=== PATIENT | male | born 1970 | race Caucasian/White ===

== ENCOUNTER 2017-02-05 14:52 | Emergency (ER) | payer MEDICARE, OTHER ==
[~2017-02-05] VITALS: Ht 180.3 cm; Wt 84.0 kg
[~2017-02-05 14:52] MED LIST: ALPR-624 PO; CARI3CAP PO; DIL100C PO; GABA-532 PO; KEP500T PO; LURA80TA3 PO; NICO-631 TD; OXCA600T PO; PANT-47 PO; PRAZ1CAP5 PO; RIFA200T2 PO; TRAZ150T78 PO; VENL-190 PO
[2017-02-05 15:24] LABS: BASOPHILS # (AUTO) 0.1 X10'3 (0-0.2); BASOPHILS % (AUTO) 0.8 % (0-1); EOSINOPHILS # (AUTO) 0.2 X10'3 (0-0.9); HEMATOCRIT 38.6 % (42.0-52.0); HEMOGLOBIN 12.7 g/dl (14.0-17.9); LYMPHOCYTES # (AUTO) 2.1 X10'3 (1.1-4.8); LYMPHOCYTES % (AUTO) 22.3 % (21-51); MEAN CORPUSCULAR HEMOGLOBIN 31.1 PG (27.0-31.0); MEAN CORPUSCULAR HGB CONC 32.8 % (33.0-36.5); MEAN CORPUSCULAR VOLUME 94.6 FL (78-98); MEAN PLATELET VOLUME 6.2 FL (7.4-10.4); MONOCYTES # (AUTO) 0.9 X10'3 (0-0.9); MONOCYTES % (AUTO) 9.9 % (2-12); NEUTROPHILS # (AUTO) 6.2 X10'3 (1.8-7.7); PLATELET COUNT 268 X10'3 (140-440); RED BLOOD COUNT 4.08 X10'6 (4.70-6.10); RED CELL DISTRIBUTION WIDTH 19.6 % (11.5-14.5); WHITE BLOOD COUNT 9.6 X10'3 (4.5-11.0)
[2017-02-05 15:29] LABS: CLARITY,URINE Clear (Clear); COLOR,URINE Yellow (Yellow); GLUCOSE, URINE Negative (Neg); KETONES,URINE Negative (Neg); LEUKOCYTE ESTERASE ,URINE Negative (Neg); NITRITES, URINE Negative (Neg); OCCULT BLOOD,URINE Negative (Neg); PROTEIN,URINE Negative (Neg)
[2017-02-05 15:30] LABS: UA COLLECTION TYPE CLN CATCH MIDSTREAM
[2017-02-05 15:33] LABS: INR 1.5 INR
[2017-02-05 15:39] LABS: ALANINE AMINOTRANSFERASE 16 U/L (12-78); ALBUMIN 2.6 G/DL (3.4-5.0); ALBUMIN/GLOBULIN RATIO 0.5 (1.1-1.5); ALKALINE PHOSPHATASE 235 IU/L (46-116); AMYLASE 13 U/L (25-115); ANION GAP 6 (8-16); ASPARTATE AMINO TRANSFERASE 46 U/L (10-37); BILIRUBIN,TOTAL 1.4 MG/DL (0.1-1.0); BLOOD UREA NITROGEN 1 MG/DL (7-18); BUN/CREATININE RATIO 1.6 (5.4-32.0); CALCIUM 8.2 MG/DL (8.5-10.1); CHLORIDE 99 MMOL/L (99-107); CREATININE 0.61 MG/DL (0.60-1.10); GLUCOSE 133 MG/DL (70-104); LIPASE 50 U/L (73-393); POTASSIUM 3.8 MMOL/L (3.5-5.1); SODIUM 135 MMOL/L (135-145); TOTAL CARBON DIOXIDE 29.7 MMOL/L (24-32); TOTAL PROTEIN 8.1 G/DL (6.4-8.2); eGFR > 90 ML/MIN
[2017-02-05 20:46] VITALS: BP 124/81
== END 2017-02-05 20:49 | disposition home or self-care (01) ==
LOC: ER 14:52
DX: R18.8 Other ascites (principal); F10.10 Alcohol abuse, uncomplicated; Z79.899 Other long term (current) drug therapy
CPT/HCPCS: 36415; 49082; 80053; 81003; 82150; 83690; 85025; 85610; 99285

== ENCOUNTER 2017-02-16 07:03 | Inpatient (IN) | payer MEDICARE, OTHER ==
[~2017-02-16] VITALS: Ht 180.3 cm; Wt 89.3 kg
[2017-02-16 07:39] LABS: BASOPHILS # (AUTO) 0.2 X10'3 (0-0.2); BASOPHILS % (AUTO) 1.6 % (0-1); EOSINOPHILS # (AUTO) 0.2 X10'3 (0-0.9); EOSINOPHILS % (AUTO) 1.8 % (0-6); HEMATOCRIT 38.8 % (42.0-52.0); HEMOGLOBIN 12.8 g/dl (14.0-17.9); LYMPHOCYTES # (AUTO) 2.9 X10'3 (1.1-4.8); MEAN CORPUSCULAR HEMOGLOBIN 30.4 PG (27.0-31.0); MEAN CORPUSCULAR VOLUME 92.3 FL (78-98); MEAN PLATELET VOLUME 6.2 FL (7.4-10.4); MONOCYTES # (AUTO) 1.5 X10'3 (0-0.9); MONOCYTES % (AUTO) 14.4 % (2-12); NEUTROPHILS # (AUTO) 5.7 X10'3 (1.8-7.7); NEUTROPHILS % (AUTO) 54.2 % (42-75); PLATELET COUNT 254 X10'3 (140-440); RED CELL DISTRIBUTION WIDTH 18.7 % (11.5-14.5); WHITE BLOOD COUNT 10.4 X10'3 (4.5-11.0)
[2017-02-16 07:49] LABS: INR 1.4 INR; PROTHROMBIN TIME 14.7 SECONDS (9.0-12.0)
[2017-02-16 07:54] LABS: ALANINE AMINOTRANSFERASE 18 U/L (12-78); ALBUMIN 2.4 G/DL (3.4-5.0); ALBUMIN/GLOBULIN RATIO 0.4 (1.1-1.5); ALKALINE PHOSPHATASE 237 IU/L (46-116); ANION GAP 7 (8-16); ASPARTATE AMINO TRANSFERASE 42 U/L (10-37); BILIRUBIN,TOTAL 1.6 MG/DL (0.1-1.0); BLOOD UREA NITROGEN 2 MG/DL (7-18); BUN/CREATININE RATIO 2.8 (5.4-32.0); CALCIUM 8.2 MG/DL (8.5-10.1); CHLORIDE 99 MMOL/L (99-107); CREATININE 0.71 MG/DL (0.60-1.10); GLUCOSE 107 MG/DL (70-104); LIPASE 51 U/L (73-393); POTASSIUM 3.3 MMOL/L (3.5-5.1); SODIUM 135 MMOL/L (135-145); TOTAL PROTEIN 8.1 G/DL (6.4-8.2); eGFR > 90 ML/MIN
[2017-02-16 08:11] LABS: CLARITY,URINE CLEAR (Clear); COLOR,URINE YELLOW (Yellow); GLUCOSE, URINE NEGATIVE (Neg); KETONES,URINE TRACE mg/dl (Neg); LEUKOCYTE ESTERASE ,URINE NEGATIVE (Neg); NITRITES, URINE NEGATIVE (Neg); OCCULT BLOOD,URINE NEGATIVE (Neg); PH,URINE 6.5 (4.8-8.0); PROTEIN,URINE TRACE mg/dl (Neg)
[2017-02-16 08:36] LABS: UA COLLECTION TYPE CLN CATCH MIDSTREAM
[2017-02-16] MEDS ORDERED: pantoprazole 40 MG vial IV ONE (09:05)
[2017-02-16] MEDS ORDERED: ondansetron/PF 4mg/2ml inj IV ONE (09:25)
[2017-02-16] MEDS ORDERED: pantoprazole 40MG/NS 100ML BAG 100 ML IV ONE (09:40)
[2017-02-16 09:41] LABS: MAGNESIUM 1.7 MG/DL (1.5-2.4)
[2017-02-16 09:59] LABS: MUCUS STRANDS MANY /LPF (Neg); SQUAMOUS EPITHELIAL CELL,UR MODERATE /LPF (FEW)
[2017-02-16 10:05] LABS: BACTERIA,URINE FEW /HPF (Neg); RBC,URINE 0-2 /HPF (0-2); WBC,URINE 0-4 /HPF (0-4)
[2017-02-16] MEDS ORDERED: CARI3CAP PO (10:22)
[2017-02-16] MEDS ORDERED: pantoprazole 40MG/NS 100ML BAG 100 ML IV SCH (11:00)
[2017-02-16 11:46] LABS: OCCULT BLOOD STOOL POSITIVE (Neg)
[2017-02-16] MEDS ORDERED: mag hydrox/Alum hydrox/simeth 30ml oral suspension PO PRN (12:15)
[2017-02-16] MEDS ORDERED: acetaminophen 325mg tablet PO PRN (12:15)
[2017-02-16] MEDS ORDERED: magnesium hydroxide 30ml (MOM) UD suspension PO PRN (12:15)
[2017-02-16] MEDS ORDERED: albumin (human) 25% 100 ML IV solution IV ONE ×3 (12:20→14:30)
[2017-02-16 12:23] LABS: URINE AMPHETAMINE SCREEN NEGATIVE (Neg); URINE BARBITUATE SCREEN NEGATIVE (Neg); URINE BENZODIAZEPINES SCREEN POSITIVE (Neg); URINE CANNABINOID SCREEN POSITIVE (Neg); URINE COCAINE SCREEN NEGATIVE (Neg); URINE METHADONE SCREEN NEGATIVE (Neg); URINE OPIATE SCREEN NEGATIVE (Neg); URINE PHENCYCLIDINE SCREEN NEGATIVE (Neg)
[2017-02-16] MEDS ORDERED: LIDOcaine 1%/PF (10mg/ml) 5ml vial ONE (12:58)
[2017-02-16] MEDS: ondansetron/PF 4mg/2ml inj IV PRN (13:00)
[2017-02-16] MEDS: normal saline 1000ml 1,000 ML IV SCH ×2 (13:00→22:13)
[2017-02-16 13:13] VITALS: BP 120/81
[2017-02-16 13:34] VITALS: BP 98/75
[2017-02-16] MEDS ORDERED: ALPRAZolam 0.5mg tablet PO PRN (17:00)
[2017-02-16 17:20] VITALS: BP 100/72
[2017-02-16 20:00] VITALS: BP 104/76
[2017-02-16] MEDS: phenytoin sod ER 100mg capsule PO SCH (20:44)
[2017-02-16] MEDS: prazosin 1mg capsule PO SCH (20:45)
[2017-02-16] MEDS: traZODone 150mg tablet PO SCH (20:45)
[2017-02-16] MEDS: levetiracetam 250mg tablet PO SCH (20:45)
[2017-02-16] MEDS: lactulose 20gm/30ml cup PO SCH (20:45)
[2017-02-16] MEDS: pantoprazole 40 MG vial IV SCH (20:46)
[2017-02-16] MEDS: gabapentin 300mg capsule PO SCH (20:46)
[2017-02-16] MEDS: oxcarbazepine 150mg tablet PO SCH (20:51)
[2017-02-16] MEDS ORDERED: lurasidone 20mg tablet PO ONE (21:00)
[2017-02-16] MEDS ORDERED: lurasidone 60mg tablet PO ONE (21:00)
[2017-02-17] VITALS (10 sets, daily range): BP systolic 95–113; BP diastolic 53–77
[2017-02-17] MEDS: normal saline 1000ml 1,000 ML IV SCH ×2 (05:43→22:22)
[2017-02-17 06:05] LABS: BASOPHILS % (AUTO) 0.5 % (0-1); EOSINOPHILS # (AUTO) 0.1 X10'3 (0-0.9); EOSINOPHILS % (AUTO) 1.1 % (0-6); HEMATOCRIT 33.8 % (42.0-52.0); HEMOGLOBIN 11.1 g/dl (14.0-17.9); LYMPHOCYTES # (AUTO) 1.4 X10'3 (1.1-4.8); LYMPHOCYTES % (AUTO) 23.5 % (21-51); MEAN CORPUSCULAR HEMOGLOBIN 30.1 PG (27.0-31.0); MEAN CORPUSCULAR HGB CONC 32.9 % (33.0-36.5); MEAN CORPUSCULAR VOLUME 91.4 FL (78-98); MEAN PLATELET VOLUME 6.5 FL (7.4-10.4); MONOCYTES # (AUTO) 0.9 X10'3 (0-0.9); MONOCYTES % (AUTO) 14.1 % (2-12); NEUTROPHILS # (AUTO) 3.8 X10'3 (1.8-7.7); NEUTROPHILS % (AUTO) 60.8 % (42-75); PLATELET COUNT 180 X10'3 (140-440); RED CELL DISTRIBUTION WIDTH 18.6 % (11.5-14.5); WHITE BLOOD COUNT 6.2 X10'3 (4.5-11.0)
[2017-02-17 06:18] LABS: ALBUMIN 2.4 G/DL (3.4-5.0); ANION GAP 7 (8-16); BLOOD UREA NITROGEN 2 MG/DL (7-18); BUN/CREATININE RATIO 3.4 (5.4-32.0); CALCIUM 7.6 MG/DL (8.5-10.1); CHLORIDE 106 MMOL/L (99-107); CREATININE 0.59 MG/DL (0.60-1.10); GLUCOSE 119 MG/DL (70-104); POTASSIUM 3.4 MMOL/L (3.5-5.1); SODIUM 139 MMOL/L (135-145); TOTAL CARBON DIOXIDE 25.6 MMOL/L (24-32); eGFR > 90 ML/MIN
[2017-02-17] MEDS ORDERED: cefTRIAXone 1g/NS 100ml IVPB 100 ML IV SCH (08:00)
[2017-02-17] MEDS ORDERED: potassium Cl 20 mEq SR tablet PO PRN ×2 (08:20)
[2017-02-17] MEDS ORDERED: potassium Cl 40MEQ/NS 500ml 500 ML IV PRN ×2 (08:20)
[2017-02-17] MEDS: lactulose 20gm/30ml cup PO SCH ×3 (09:07→20:28)
[2017-02-17] MEDS: oxcarbazepine 150mg tablet PO SCH ×2 (09:07→22:14)
[2017-02-17] MEDS: levetiracetam 250mg tablet PO SCH ×2 (09:08→22:13)
[2017-02-17] MEDS: pantoprazole 40 MG vial IV SCH ×2 (09:08→22:13)
[2017-02-17] MEDS: phenytoin sod ER 100mg capsule PO SCH ×2 (09:09→22:13)
[2017-02-17] MEDS: prazosin 1mg capsule PO SCH ×2 (09:09→22:14)
[2017-02-17] MEDS: venlafaxine XR 75mg capsule (Q24H) PO SCH (09:09)
[2017-02-17] MEDS: gabapentin 300mg capsule PO SCH ×3 (09:09→22:14)
[2017-02-17] MEDS: nicotine 21mg patch - 24 hr TD SCH (09:27)
[2017-02-17] MEDS: Cariprazine Hydrochloride (Vraylar) 3 MG CAPSULE PO SCH (09:30)
[2017-02-17] MEDS ORDERED: octreotide 100mcg/1 ml ampule SQ ONE (10:57)
[2017-02-17] MEDS: OCTREOTIDE 1,250 MCG in NS 250ml IV.SOLN IV SCH (11:37)
[2017-02-17] MEDS ORDERED: fentaNYL/PF 50MCG/1 ML 2ML syringe ONE (12:05)
[2017-02-17] MEDS ORDERED: MIDAZolam 1mg/ml 10ml vial ONE (12:06)
[2017-02-17] MEDS ORDERED: LIDOcaine Viscous 15ml cup ONE (12:06)
[2017-02-17] MEDS ORDERED: normal saline 1000ml 1,000 ML IV SCH (14:03)
[2017-02-17] MEDS ORDERED: simethicone 40mg/0.6ml oral drops 30ml MC ONE (14:05)
[2017-02-17] MEDS ORDERED: MIDAZolam 1mg/ml 10ml vial IV PRN (14:05)
[2017-02-17] MEDS ORDERED: LIDOcaine Viscous 15ml cup PO ONE (14:05)
[2017-02-17] MEDS ORDERED: fentaNYL/PF 50MCG/1 ML 2ML syringe IV PRN (14:05)
[2017-02-17] MEDS: ondansetron/PF 4mg/2ml inj IV PRN (20:34)
[2017-02-17] MEDS ORDERED: lurasidone 60mg tablet PO ONE (21:00)
[2017-02-17] MEDS ORDERED: lurasidone 20mg tablet PO ONE (21:00)
[2017-02-17] MEDS ORDERED: LATUDA 80 MG TAB PO ONE (21:00)
[2017-02-17] MEDS: traZODone 150mg tablet PO SCH (22:14)
[2017-02-18] VITALS: BP 102/63
[2017-02-18] MEDS: normal saline 1000ml 1,000 ML IV SCH (04:13)
[2017-02-18 04:39] LABS: BASOPHILS # (AUTO) 0.1 X10'3 (0-0.2); BASOPHILS % (AUTO) 1.3 % (0-1); EOSINOPHILS # (AUTO) 0.2 X10'3 (0-0.9); EOSINOPHILS % (AUTO) 2.3 % (0-6); HEMATOCRIT 31.8 % (42.0-52.0); HEMOGLOBIN 10.4 g/dl (14.0-17.9); LYMPHOCYTES # (AUTO) 1.9 X10'3 (1.1-4.8); MEAN CORPUSCULAR HEMOGLOBIN 29.7 PG (27.0-31.0); MEAN CORPUSCULAR HGB CONC 32.5 % (33.0-36.5); MEAN CORPUSCULAR VOLUME 91.3 FL (78-98); MEAN PLATELET VOLUME 6.2 FL (7.4-10.4); MONOCYTES # (AUTO) 0.8 X10'3 (0-0.9); MONOCYTES % (AUTO) 11.2 % (2-12); NEUTROPHILS # (AUTO) 4.3 X10'3 (1.8-7.7); NEUTROPHILS % (AUTO) 59.2 % (42-75); PLATELET COUNT 178 X10'3 (140-440); RED BLOOD COUNT 3.48 X10'6 (4.70-6.10); RED CELL DISTRIBUTION WIDTH 18.5 % (11.5-14.5); WHITE BLOOD COUNT 7.3 X10'3 (4.5-11.0)
[2017-02-18 04:49] LABS: ALBUMIN 2.2 G/DL (3.4-5.0); ANION GAP 6 (8-16); BLOOD UREA NITROGEN 2 MG/DL (7-18); BUN/CREATININE RATIO 3.2 (5.4-32.0); CALCIUM 7.7 MG/DL (8.5-10.1); CHLORIDE 106 MMOL/L (99-107); CREATININE 0.62 MG/DL (0.60-1.10); GLUCOSE 68 MG/DL (70-104); MAGNESIUM 1.5 MG/DL (1.5-2.4); POTASSIUM 3.3 MMOL/L (3.5-5.1); SODIUM 138 MMOL/L (135-145); TOTAL CARBON DIOXIDE 25.9 MMOL/L (24-32); eGFR > 90 ML/MIN
[2017-02-18 07:28] VITALS: BP 103/67
[2017-02-18] MEDS: Cariprazine Hydrochloride (Vraylar) 3 MG CAPSULE PO SCH (08:00)
[2017-02-18] MEDS: lactulose 20gm/30ml cup PO SCH (08:59)
[2017-02-18] MEDS: venlafaxine XR 75mg capsule (Q24H) PO SCH (09:01)
[2017-02-18] MEDS: phenytoin sod ER 100mg capsule PO SCH (09:01)
[2017-02-18] MEDS: levetiracetam 250mg tablet PO SCH (09:04)
[2017-02-18] MEDS: gabapentin 300mg capsule PO SCH (09:09)
[2017-02-18] MEDS: oxcarbazepine 150mg tablet PO SCH (09:11)
[2017-02-18] MEDS: nicotine 21mg patch - 24 hr TD SCH (09:19)
[2017-02-18] MEDS: prazosin 1mg capsule PO SCH (11:59)
[2017-02-18] MEDS: OCTREOTIDE 1,250 MCG in NS 250ml IV.SOLN IV SCH (12:00)
[2017-02-18] MEDS ORDERED: SPIR25TA3 PO (12:01)
[2017-02-18] MEDS ORDERED: FURO20TA4 PO (12:01)
[2017-02-18] MEDS ORDERED: PROP10TA10 PO (12:01)
[2017-02-18] MEDS ORDERED: NICO-687 TD (12:01)
[2017-02-18] MEDS ORDERED: CIPR-173 PO (12:01)
[2017-02-18 12:25] VITALS: BP 89/54
[2017-02-18 12:26] VITALS: BP 93/63
[2017-02-18] MEDS ORDERED: ciprofloxacin 500MG tablet PO SCH (20:00)
[2017-02-18] MEDS ORDERED: spironolactone 25 MG tablet PO SCH (20:00)
[2017-02-19] MEDS ORDERED: pantoprazole 40mg Tablet.DR PO SCH (07:30)
[2017-02-19] MEDS ORDERED: furosemide 20MG tablet PO SCH (08:00)
== END 2017-02-18 13:38 | disposition home or self-care (01) | DRG 432 ==
LOC: ER 07:03 → ED HOLD 12:13 → MED 3N 17:23
PROVIDERS: ADMIT Family Medicine; ATTEND Family Medicine
PROC: 0W9G3ZZ Drainage of Peritoneal Cavity, Percutaneous Approach (ICD-10-PCS; principal; 2017-02-16)
PROC: 0DJ08ZZ Inspection of Upper Intestinal Tract, Via Natural or Artificial Opening Endoscopic (ICD-10-PCS; 2017-02-17)
DX: K70.31 Alcoholic cirrhosis of liver with ascites (principal); K72.91 Hepatic failure, unspecified with coma; K76.6 Portal hypertension; F20.9 Schizophrenia, unspecified; K92.2 Gastrointestinal hemorrhage, unspecified; G40.909 Epilepsy, unspecified, not intractable, without status epilepticus; K22.70 Barrett's esophagus without dysplasia; K31.89 Other diseases of stomach and duodenum; F17.210 Nicotine dependence, cigarettes, uncomplicated; Z79.899 Other long term (current) drug therapy; Z79.01 Long term (current) use of anticoagulants
CPT/HCPCS: 36415; 49083; 80048; 80053; 80305; 80320; 81001; 82140; 82272; 83690; 83735; 85025; 85610; 87070; 96365; 96375; 99285; A4620; C9113; G0500; J0696; J2001; J2250; J2354; J2405; J3010; J7030; P9047

== ENCOUNTER 2017-04-17 07:55 | Day surgery (SDC) | payer MEDICARE ==
[2017-04-17] VITALS (11 sets, daily range): BP systolic 82–99; BP diastolic 55–71
[~2017-04-17] VITALS: Ht 180.3 cm; Wt 79.6 kg
[~2017-04-17 07:55] MED LIST changes: +CIPR-173 PO; +FURO20TA4 PO; -NICO-631 TD; +NICO-687 TD; +PROP10TA10 PO; -RIFA200T2 PO; +SPIR25TA3 PO
[2017-04-17] MEDS ORDERED: normal saline 1000ml 1,000 ML IV PRN (08:30)
[2017-04-17] MEDS ORDERED: ONDA4TAB12 PO (08:39)
[2017-04-17] MEDS ORDERED: LIDOcaine 1% (10mg/ml) 2ml vial ONE (08:46)
[2017-04-17] MEDS: albumin (human) 25% 100 ML IV solution IV PRN ×2 (09:18→09:23)
== END 2017-04-17 10:15 | disposition home or self-care (01) ==
LOC: SSTAY O 07:55
PROVIDERS: ATTEND Radiology Vascular & Interventional Radiology
DX: R18.8 Other ascites (principal); F10.21 Alcohol dependence, in remission; F32.9 Major depressive disorder, single episode, unspecified; F17.210 Nicotine dependence, cigarettes, uncomplicated; K21.9 Gastro-esophageal reflux disease without esophagitis; Z72.89 Other problems related to lifestyle; Z79.2 Long term (current) use of antibiotics; Z79.01 Long term (current) use of anticoagulants; Z87.820 Personal history of traumatic brain injury; Z79.899 Other long term (current) drug therapy
CPT/HCPCS: 49083; A6257; J3490; J7030; P9047